=== PATIENT | female | born 1990 | race African-American/Black ===

== ENCOUNTER 2018-04-06 18:13 | Emergency (ER) | payer SELFPAY ==
[~2018-04-06] VITALS: Ht 152.4 cm; Wt 62.3 kg
[2018-04-06 19:46] VITALS: BP 130/80
== END 2018-04-06 19:51 | disposition home or self-care (01) ==
LOC: EMS 18:15
DX: R21 Rash and other nonspecific skin eruption (principal); R03.0 Elevated blood-pressure reading, without diagnosis of hypertension; Z88.5 Allergy status to narcotic agent; Z88.6 Allergy status to analgesic agent; Z87.891 Personal history of nicotine dependence

== ENCOUNTER 2021-02-04 17:07 | Emergency (ER) | payer OTHER ==
[~2021-02-04] VITALS: Ht 152.4 cm; Wt 68.2 kg
[2021-02-04] MEDS ORDERED: AMOXICILLIN TRIHYDRATE 250 MG CAPSULE PO ONE (20:15)
[2021-02-04 21:00] VITALS: BP 132/82
[2021-02-04] MEDS ORDERED: NEOMYCIN/POLYMYXIN B/HYDROCORT 10 ML OTIC SUSPENSION AS ONE (22:00)
== END 2021-02-04 22:05 | disposition home or self-care (01) ==
LOC: EMS 17:10
DX: H60.92 Unspecified otitis externa, left ear (principal); F17.210 Nicotine dependence, cigarettes, uncomplicated; F12.90 Cannabis use, unspecified, uncomplicated; Z90.89 Acquired absence of other organs; Z88.5 Allergy status to narcotic agent
CPT/HCPCS: 99283